=== PATIENT | female | born 1975 | race African-American/Black ===

== ENCOUNTER 2025-07-25 09:27 | Observation (INO) | payer OTHER, SELFPAY ==
[2025-07-25] VITALS (27 sets, daily range): BP systolic 106–128; BP diastolic 55–76; PULSE 97–143; RESP 13–27; TEMP 36.8–38.8; O2SAT 95–100; BMI 34.1
--- NOTE | 2025-07-25 10:24 | EKG12_ITS ---
Test Reason : TACHY Blood Pressure : */* mmHG Vent. Rate : 134 BPM Atrial Rate : 134 BPM P-R Int : 122 ms QRS Dur : 72 ms QT Int : 312 ms P-R-T Axes : 62 67 48 degrees QTcB Int : 465 ms Sinus tachycardia Low voltage QRS Borderline ECG Confirmed by ERIKA REYNA ([id number]), technical editor BENJAMIN BRENNER ([id number]) on 07/27/2025 7:09:29 AM Referred By: ROSA Confirmed By: ERIKA REYNA
[2025-07-25] MEDS: 0.9% Normal Saline (1000mL) 1,000 ML 999 ML IV (10:38)
[2025-07-25] MEDS: Ketorolac 30 MG/ML Syringe IV (10:39)
--- NOTE | 2025-07-25 10:45 | RAD_ITS ---
PROCEDURE: CHEST 1 VIEW (PORTABLE) 07/25/2025 REASON FOR EXAM: COUGH, SHORTNESS OF BREATH TECHNIQUE: Frontal view of the chest. COMPARISON: None FINDINGS: Cardiac silhouette is upper limits of normal. The lungs are clear. No pleural effusion or pneumothorax. Bones are unremarkable. RAD/Chest 1 View (Portable) IMPRESSION: No Acute Findings. Reading Location: [id number]
[2025-07-25 10:49] LABS: Hematocrit 26.0 % (37-47); Hemoglobin 7.5 g/dL (12.0-15.0); Immature Granulocytes Count 0.030 X10^3/uL (0.0-0.0); Mean Corp Hgb Conc 28.8 g/dL (32-36); Mean Corpuscular Volume 82.5 fL (81-99); Mean Platelet Vol. 11.0 fl (6.2-12.0); NRBC Flagged by Analyzer 1.3 % (0-5); POSITIVE DIFFERENTIAL YES; POSITIVE MORPHOLOGY YES; Platelet Count 110 K/mm3 (150-450); RBC Distribution Width CV 20.4 % (11.6-14.6); RBC Distribution Width SD 57.0 fl (35.1-43.9); Red Blood Count 3.15 M/mm3 (4.2-5.4); White Blood Count 6.3 K/mm3 (4.4-11.0)
--- NOTE | 2025-07-25 10:49 | EX.ED.DYSGE1 ---
HPI History of Present Illness Chief Complaint: General Illness Narrative Narrative: This is a 49-year-old female with a history of HHT syndrome who presents to the emergency department for fever and malaise. The patient states that since yesterday she began feeling unwell. She has had persistent fevers overnight. The patient states she tried taking Tylenol this morning around 930, but continues to have a fever. The patient also endorses some chills. She has had a slight nonproductive cough. She endorses right ear pain but no sore throat. No significant congestion. No chest pain but she has had some slight shortness of breath. No headache. No abdominal pain. No vomiting. No diarrhea. No urinary symptoms such as frequency, urgency or dysuria. The patient states that she did have a blood transfusion on Sunday, 3 days ago for acute on chronic anemia secondary to her HHT syndrome. She normally gets scheduled iron infusions, but her hemoglobin had dropped down to about 6.4 so she did require blood transfusion this week. She has not had any prior reactions to this. Patient is mostly concerned about her fever because she was admitted in [facility] last winter/spring. She was admitted to [facility] in November 2024 and was found to have bacteremia, E. coli, secondary to indwelling port infection. The port has since been removed. The patient states that she was so ill she ended up being transferred up to the [facility] in [place] and had a total admission for about 52 days before going to a rehab facility in December being discharged in January. The patient states she has had ongoing nausea since that discharge. She did take some Zofran this morning which calmed down the nausea. The patient is traveling from [place] visiting friends. She has had no known sick contacts. [facility] Medical History (Updated 07/25/25 @ 19:[address] Matilde Yoder MD) Iron (Fe) deficiency anemia Hypertension Port or reservoir infection Blood disorder no medical history Home Medications ?Medication ?Instructions ?Recorded ?Last Taken ?Type acetaminophen 500 mg capsule 1,000 mg PO Q6H PRN fever or pain 07/25/25 07/25/25 History fluticasone furoate 100 1 inh inhalation Q24H 07/25/25 Unknown History mcg/actuation blister powder for inhalation furosemide 20 mg tablet 40 mg PO DAILY 07/25/25 07/25/25 History ondansetron 4 mg disintegrating 4 mg PO Q8H PRN nausea and vomiting 07/25/25 07/25/25 History tablet potassium chloride 8 mEq 8 meq PO DAILY 07/25/25 07/24/25 History capsule,extended release timolol maleate 0.5 % eye drops 4 drp ophthalmic (eye) Q12H 07/25/25 07/24/25 History Allergy/AdvReac Type Severity Reaction Status Date / Time No Known Allergies Allergy Verified 07/25/25 09:28 no significant family history Surgical History (Updated 07/25/25 @ 10:24 by Kacie Aguila) History of cholecystectomy Gastric bypass status for obesity no surgical history Social History Smoking Status: Never smoker Homelessness:: Sheltered ROS ROS ED Constitutional Constitutional ED: Reports chills and fever(s) ENT ENT ED: Reports ear pain right and other; Denies rhinorrhea or sore throat Cardiovascular Cardiovascular: Denies chest pain, orthopnea or paroxysmal nocturnal dyspnea Respiratory/Chest Respiratory/Chest: Reports cough and dyspnea; Denies dyspnea on exertion, orthopnea, paroxysmal nocturnal dyspnea or sputum Gastrointestinal Gastrointestinal: Reports nausea; Denies abdominal pain, constipation, diarrhea or vomiting Genitourinary Genitourinary ED: Denies dysuria or urinary frequency Musculoskeletal Musculoskeletal: Reports myalgias; Denies arthralgias, back pain or neck pain Integumentary Denies rash Neurologic Neurologic: Denies headache(s) or weakness Psychiatric Psychiatric: Denies confusion Endocrine Endocrinology: Denies polyuria Hematologic/Lymphatic Hematologic/Lymphatic: Reports none Allergic/Immunologic Allergic/Immunologic ED: Denies urticaria EXAM Physical Exam Const Vital Signs: 07/25/25 09:29 07/25/25 09:58 07/25/25 09:58 Temperature 100.9 F H 101.0 F H Temperature Source Oral Oral Pulse Rate 143 H 125 H Respiratory Rate 18 16 Respiratory Effort Normal Blood Pressure 122/69 H 115/62 Blood Pressure Mean 86 79 Pulse Ox 95 100 Oxygen Delivery Method Room Air Room Air 07/25/25 10:13 07/25/25 10:49 07/25/25 11:00 Temperature Temperature Source Pulse Rate 123 H 116 H 110 H Respiratory Rate 14 19 H 20 H Respiratory Effort Blood Pressure 120/63 Blood Pressure Mean 82 Pulse Ox 98 96 98 Oxygen Delivery Method 07/25/25 11:01 07/25/25 11:01 07/25/25 11:15 Temperature 101.9 F H Temperature Source Oral Pulse Rate 110 H 111 H 112 H Respiratory Rate 24 H 27 H 16 Respiratory Effort Blood Pressure 119/72 119/72 117/76 Blood Pressure Mean 87 86 89 Pulse Ox 96 96 97 Oxygen Delivery Method Room Air 07/25/25 11:30 07/25/25 11:32 07/25/25 11:45 Temperature 99.8 F H Temperature Source Oral Pulse Rate 111 H 112 H Respiratory Rate 18 16 Respiratory Effort Blood Pressure 112/60 117/61 Blood Pressure Mean 75 77 Pulse Ox 97 96 Oxygen Delivery Method 07/25/25 12:00 07/25/25 12:00 07/25/25 12:15 Temperature 99.8 F H Temperature Source Oral Pulse Rate 109 H 112 H Respiratory Rate 24 H 20 H Respiratory Effort Blood Pressure 112/62 118/63 112/62 Blood Pressure Mean 78 80 77 Pulse Ox 96 97 Oxygen Delivery Method Room Air 07/25/25 12:30 07/25/25 12:45 07/25/25 13:00 Temperature Temperature Source Pulse Rate 109 H 108 H Respiratory Rate 21 H 18 Respiratory Effort Blood Pressure 123/60 H 110/55 L 111/63 Blood Pressure Mean 78 71 77 Pulse Ox 96 98 Oxygen Delivery Method 07/25/25 13:19 07/25/25 13:28 07/25/25 13:30 Temperature Temperature Source Pulse Rate 111 H 106 H Respiratory Rate 20 H 18 Respiratory Effort Blood Pressure 111/63 114/60 Blood Pressure Mean 79 75 Pulse Ox 97 96 Oxygen Delivery Method Room Air 07/25/25 13:45 07/25/25 13:59 07/25/25 14:00 Temperature 99.2 F H 99.2 F H Temperature Source Oral Oral Pulse Rate 111 H 109 H Respiratory Rate 13 21 H Respiratory Effort Blood Pressure 125/74 H 128/72 H Blood Pressure Mean 89 90 Pulse Ox 98 98 Oxygen Delivery Method Room Air 07/25/25 14:00 07/25/25 14:15 Temperature Temperature Source Pulse Rate 109 H Respiratory Rate 19 H Respiratory Effort Blood Pressure 128/72 H 122/70 H Blood Pressure Mean 88 85 Pulse Ox 99 Oxygen Delivery Method Positive well nourished, well developed, oriented x3 and healthy appearing General Appearance ED: active, cooperative and well developed Orientation / Consciousness: awake and oriented to person Exam Limitations: no limitations Nutritional Appearance: overweight HEENT Reports normocephalic, head/scalp atraumatic, TM's clear, moist mucous membranes, nasal mucous membranes and turbinates normal and oropharynx normal normocephalic, normal to inspection and atraumatic Face and Sinus: normal facial exam Nose: external nose normal and nares normal External Ear: external ears normal Tympanic Membrane ED: Yes TM's clear Mouth ED: Yes oral and palatal mucosa normal, Yes lips normal and Yes tongue normal Mouth: oral and palatal mucosa normal, lips normal and tongue normal Throat: posterior oropharynx normal Eyes PERRL, EOMs intact bilaterally and conjunctivae normal General Eye ED: Yes normal appearance of both eyes Visual Acuity: acuity normal Eyelid: eyelids normal Conjunctiva: conjunctiva normal Sclera: sclera normal Cornea: cornea normal Pupil: PERRL and accommodation reflex normal EOM: EOM abnormal Neck full ROM Lymph Lymphatic: no lymphadenopathy noted Chest Wall inspection of chest normal Chest: abnormal inspection of the chest Resp normal respiratory effort and normal air movement Effort and Inspection: able to speak in complete sentences and symmetric chest movement Auscultation: clear to auscultation bilaterally; Negative for rales, rhonchi or wheezes Cardio regular rhythm Rate: tachycardic Peripheral Pulses: pulses 2+ throughout GI normal to inspection, nondistended, normoactive bowel sounds Rectal Exam: deferred Back/Spine normal ROM and normal to inspection Cervical Spine: cervical ROM normal Extremity normal to inspection, full ROM and normal capillary refill Neuro oriented x3, CN's II-XII intact bilaterally, moves all extremities and no focal motor deficits Sensorium / Orientation: awake and alert Motor Exam: strength 5/5 throughout Psych mental status grossly normal Appearance: grossly normal and appropriate Speech: normal speech Skin no rashes or lesions noted MDM MDM MDM Narrative Medical decision making narrative: Patient presents to the emergency department for fever, malaise. She arrives tachycardic and febrile. Patient given 1 dose of Toradol in the emergency department. She was also given 1 L fluid. Initial lactic acid was elevated at 2.1, but after IV fluids normalized. Will the patient is febrile, I do not feel she is septic. She does not have a white count and no endorgan damage. There is no evidence of any pneumonia or urinary tract infection. Blood cultures are pending. COVID, flu and RSV testing was all negative. However, given the patient's E. coli bacteremia and sepsis requiring prolonged admission earlier this year, I do feel it is reasonable to admit the patient on observation for continued monitoring for possible development of sepsis and bacteremia given her significant history. Patient is comfortable with this plan. I spoke with hospitalist Dr. Mcbride for admission. We will hold off on antibiotics at this time as most likely this is a viral febrile illness of unclear etiology at this point. Patient agreeable with observation admission plan. History & Record Review Discussion w/independent historian: Patient Lab Data Attestation: I reviewed the patient's lab results. Lab results narrative: Lab work reviewed. Will the patient has no leukocytosis she does have a neutrophil shift 88%. And she has normal electrolytes and normal renal function. The patient does have an elevated total bilirubin level 1.58 and elevated AST of 64. Patient also has an elevated alkaline phosphatase level of 127. Unsure review, the patient does have known pancreatic mass likely contributing to these numbers. She does not have any abdominal pain or tenderness today. Otherwise urinalysis does not show any signs of infection or dehydration. Labs: Laboratory Results - last 24 hr 07/25/25 07/25/25 10:40 10:48 WBC 6.3 RBC 3.15 L Hgb 7.5 L Hct 26.0 L MCV 82.5 MCH 23.8 L MCHC 28.8 L RDW Std Deviation 57.0 H RDW Coeff of Mane 20.4 H Plt Count 110 L MPV 11.0 Immature Gran % (Auto) 0.500 Neut % (Auto) 88.2 H Lymph % (Auto) 5.1 L [place] % (Auto) 3.0 Eos % (Auto) 2.7 Baso % (Auto) 0.5 Absolute Neuts (auto) 5.6 Absolute Lymphs (auto) 0.32 L Nucleated RBC % 1.3 Polychromasia RARE Anisocytosis 1+ PT 17.2 H INR 1.4 APTT 32.1 Sodium 137 Potassium 4.0 Chloride 107 Carbon Dioxide 19.3 L Anion Gap 11 BUN 7 Creatinine 0.63 L Estim Creat Clear Calc 123.08 Est GFR (MDRD) Non-Af 109 BUN/Creatinine Ratio 10.3 Glucose 137 H Lactic Acid 2.1 H* Calcium 9.1 Total Bilirubin 1.58 H AST 64 H ALT 28 Alkaline Phosphatase 127 H Total Protein 6.8 Albumin 2.9 L Globulin 3.9 Albumin/Globulin Ratio 0.7 L Urine Color Yellow Urine Clarity Clear Urine pH 6.0 Ur Specific [place] 1.010 Urine Protein 15 H Urine Glucose (UA) Normal Urine Ketones Negative Urine Occult Blood Negative Urine Nitrite Negative Urine Bilirubin Negative Urine Urobilinogen Normal Ur Leukocyte Esterase Negative Urine RBC 0 SEEN Urine WBC 0 SEEN Ur Squamous Epith Cells 0 SEEN Urine Bacteria 0 SEEN Urine Mucus 0 SEEN Radiography Chest X-Ray - ED: 1 View, Read by ED Physician, Read by Radiologist and - (I personally reviewed the patient's chest x-ray which shows no evidence of consolidation or pneumonia.) Diagnostic Testing: Clinical Impression(s) from Imaging Studies Chest X-Ray 07/25/25 10:45 IMPRESSION: No Acute Findings. Reading Location: [id number] Management Discussion w/another healthcare provider: Hospitalist (I spoke with Dr. Mcbride) Discharge Plan Dx/Rx/DC Orders Clinical Impression: Fever of unknown origin Disposition Disposition: Acute Care Hospital [facility] Discharge Date/Time: 07/25/25 14:49
[2025-07-25 10:50] LABS: Differential Indicated SCAN CRITERIA MET
[2025-07-25 10:51] LABS: Mucous, Urine 0 SEEN /hpf (<or=2+); Red Blood Cells-Urine 0 SEEN /hpf (0-5); Squamous Epithelial Cells - UA 0 SEEN /hpf (5-10)
[2025-07-25 10:55] LABS: Color, Urine Yellow (Yellow); Glucose, Dipstick Normal (Normal); Ketone-Dipstick Negative (Negative); Leukocyte Esterase-Dipstick Negative /ul (Negative); Nitrite-Dipstick Negative (Negative); Occult Blood-Urine Negative /ul (Negative); Protein-Dipstick 15 mg/dl (Negative); Specific Gravity, Urine 1.010 (1.002-1.030); Urine Bilirubin Dipstick Negative (Negative)
[2025-07-25 11:04] LABS: Partial Thromboplast Time 32.1 Seconds (24.1-36.2)
[2025-07-25 11:13] LABS: Anisocytosis 1+; Polychromasia RARE
[2025-07-25 11:14] LABS: Prothrombin Time (Protime)PT. 17.2 SECONDS (11.7-14.9)
[2025-07-25 11:58] LABS: AST(SGOT) 64 U/L (<=31); Alanine Aminotransfer ALT/SGPT 28 U/L (<=34); Albumin, Serum 2.9 g/dL (3.5-5.0); Alkaline Phosphatase 127 U/L (35-104); Anion Gap 11 (5-15); BUN 7 mg/dL (4-19); BUN/Creat Ratio 10.3 RATIO (10-20); Calcium,Total 9.1 mg/dL (7.6-11.0); Carbon Dioxide 19.3 mmol/L (21.0-32.0); Chloride 107 mmol/L (98-108); Estimated Creatinine Clearance 123.08 ml/min (50-250); Globulin 3.9 g/dL (2.2-4.2); Glucose 137 mg/dL (70-99); Potassium 4.0 mmol/L (3.3-5.1)
[2025-07-25 14:42] LABS: Reflex Lactate? Y
[2025-07-25] MEDS: 0.9% Normal Saline (1000mL) 1,000 ML 100 ML IV ×2 (15:13→23:48)
[2025-07-25] MEDS: 0.9% Saline Lock 10 ML Syringe IV (15:13)
--- NOTE | 2025-07-25 16:52 | HP.PCM.HOS_ITS ---
HPI - General General Date of Admission: 07/25/25 Date of Service: 07/25/25 Chief Complaint: Fever and chills today HPI Narrative DEANN BANG, is a 49 F who presents to the emergency room at [facility] with chief complaint of fevers chills which started today. Patient has a past history of sepsis in November 2024 with E. coli and was hospitalized in [place] and then transferred to [facility] due to concerns of a pancreatic mass which was ruled out. The etiology of the E. coli septicemia was never explained, patient did have a permanent Mediport in for blood transfusion since she has a history of hereditary hemorrhagic telangiectasia with anemia. Patient gets blood transfusions from time to time, she had blood transfusion on Sunday but denied any fever or chills after the blood transfusion. Patient has no complaints of any cough, abdominal pain, diarrhea, or nausea and vomiting. Workup in the emergency room included labs which showed normal white blood cell count, hemoglobin was 7.5, patient's lactic acid was elevated at 2.1, AST was elevated at 64, bilirubin was 1.58 and alkaline phosphatase was 127. Patient's chest x-ray was unremarkable, urinalysis was unremarkable. Patient had a PCR for COVID, RSV, and flu-this test was negative. Patient will be placed in observation status for fever of unknown origin, labs will be monitored and blood cultures were obtained in the emergency room. I have elected not to place the patient on any IV antibiotics at this time due to the fact we do not have a source to explain her fever. [facility] Medical History (Updated 07/25/25 @ 16:[address] Mo Mcbride, DO) Iron (Fe) deficiency anemia Hypertension Port or reservoir infection Blood disorder Home Medications ?Medication ?Instructions ?Recorded ?Last Taken ?Type acetaminophen 500 mg capsule 1,000 mg PO Q6H PRN fever or pain 07/25/25 07/25/25 History fluticasone furoate 100 1 inh inhalation Q24H Unknown History mcg/actuation blister powder for inhalation furosemide 20 mg tablet 40 mg PO DAILY 07/25/2507/02 History ondansetron 4 mg disintegrating 4 mg PO Q8H PRN nausea and vomiting 07/25/25 07/25/25 History tablet potassium chloride 8 mEq 8 meq PO DAILY 07/25/2507/02 History capsule,extended release timolol maleate 0.5 % eye drops 4 drp ophthalmic (eye) Q12H 07/25/25 07/24/25 History Allergy/AdvReac Type Severity Reaction Status Date / Time No Known Allergies Allergy Verified 07/25/25 09:28 Surgical History (Updated 07/25/25 @ 10:24 by Kacie Aguila) History of cholecystectomy Gastric bypass status for obesity Social History Smoking Status: Never smoker ROS Constitutional Constitutional: Reports chills and fever(s); Denies anorexia, change in weight, night sweats or weakness Eyes Eyes: Denies blurry vision, change in eye color, change in vision, discharge from eye(s) or eye pain Cardiovascular Cardiovascular: Denies chest pain, claudication, dyspnea on exertion, edema or palpitations Respiratory/Chest Respiratory/Chest: Denies cough, dyspnea, hemoptysis, productive cough, shortness of breath at rest or shortness of breath with exertion Gastrointestinal Gastrointestinal: Denies abdominal pain, constipation, diarrhea, dyspepsia, hematemesis, hematochezia, melena, nausea or vomiting Genitourinary Genitourinary: Denies dysuria, hematuria, urinary frequency, urinary hesitancy, urinary incontinence or urinary urgency Musculoskeletal Musculoskeletal: Denies back pain, joint pain, joint stiffness, joint swelling, myalgias or neck pain Neurologic Neurologic: Denies abnormal gait, abnormal speech, dizziness, focal weakness, headache(s), loss of vision, numbness, other visual disturbances, paresthesias, syncope or tingling Psychiatric Psychiatric: Denies anxiety, cognitive impairment, depression, irritability, mood swings or suicidal ideation Endocrine Endocrinology: Denies change in body appearance, cold intolerance, excessive sweating, heat intolerance, polydipsia or polyuria Hematologic/Lymphatic Hematologic/Lymphatic: Denies none, anemia, easy bleeding, easy bruising or lymphadenopathy Allergic/Immunologic Allergic/Immunologic: Denies rhinitis, urticaria, eczemia or asthma Vital Signs Vital Signs Vital Signs: 07/25/25 09:29 07/25/25 09:58 07/25/25 09:58 Temperature 100.9 F H 101.0 F H Temperature Source Oral Oral Pulse Rate 143 H 125 H Respiratory Rate 18 16 Respiratory Effort Normal Blood Pressure 122/69 H 115/62 Blood Pressure Mean 86 79 Blood Pressure Source Blood Pressure Position Blood Pressure Location Pulse Ox 95 100 Oxygen Delivery Method Room Air Room Air 07/25/25 10:13 07/25/25 10:49 07/25/25 11:00 Temperature Temperature Source Pulse Rate 123 H 116 H 110 H Respiratory Rate 14 19 H 20 H Respiratory Effort Blood Pressure 120/63 Blood Pressure Mean 82 Blood Pressure Source Blood Pressure Position Blood Pressure Location Pulse Ox 98 96 98 Oxygen Delivery Method 07/25/25 11:01 07/25/25 11:01 07/25/25 11:15 Temperature 101.9 F H Temperature Source Oral Pulse Rate 110 H 111 H 112 H Respiratory Rate 24 H 27 H 16 Respiratory Effort Blood Pressure 119/72 119/72 117/76 Blood Pressure Mean 87 86 89 Blood Pressure Source Blood Pressure Position Blood Pressure Location Pulse Ox 96 96 97 Oxygen Delivery Method Room Air 07/25/25 11:30 07/25/25 11:32 07/25/25 11:45 Temperature 99.8 F H Temperature Source Oral Pulse Rate 111 H 112 H Respiratory Rate 18 16 Respiratory Effort Blood Pressure 112/60 117/61 Blood Pressure Mean 75 77 Blood Pressure Source Blood Pressure Position Blood Pressure Location Pulse Ox 97 96 Oxygen Delivery Method 07/25/25 12:00 07/25/25 12:00 07/25/25 12:15 Temperature 99.8 F H Temperature Source Oral Pulse Rate 109 H 112 H Respiratory Rate 24 H 20 H Respiratory Effort Blood Pressure 112/62 118/63 112/62 Blood Pressure Mean 78 80 77 Blood Pressure Source Blood Pressure Position Blood Pressure Location Pulse Ox 96 97 Oxygen Delivery Method Room Air 07/25/25 12:30 07/25/25 12:45 07/25/25 13:00 Temperature Temperature Source Pulse Rate 109 H 108 H Respiratory Rate 21 H 18 Respiratory Effort Blood Pressure 123/60 H 110/55 L 111/63 Blood Pressure Mean 78 71 77 Blood Pressure Source Blood Pressure Position Blood Pressure Location Pulse Ox 96 98 Oxygen Delivery Method 07/25/25 13:19 07/25/25 13:28 07/25/25 13:30 Temperature Temperature Source Pulse Rate 111 H 106 H Respiratory Rate 20 H 18 Respiratory Effort Blood Pressure 111/63 114/60 Blood Pressure Mean 79 75 Blood Pressure Source Blood Pressure Position Blood Pressure Location Pulse Ox 97 96 Oxygen Delivery Method Room Air 07/25/25 13:45 07/25/25 13:59 07/25/25 14:00 Temperature 99.2 F H 99.2 F H Temperature Source Oral Oral Pulse Rate 111 H 109 H Respiratory Rate 13 21 H Respiratory Effort Blood Pressure 125/74 H 128/72 H Blood Pressure Mean 89 90 Blood Pressure Source Blood Pressure Position Blood Pressure Location Pulse Ox 98 98 Oxygen Delivery Method Room Air 07/25/25 14:00 07/25/25 14:15 07/25/25 14:29 Temperature 99.2 F H Temperature Source Pulse Rate 109 H 109 H Respiratory Rate 19 H 21 H Respiratory Effort Blood Pressure 128/72 H 122/70 H 122/70 H Blood Pressure Mean 88 85 87 Blood Pressure Source Blood Pressure Position Blood Pressure Location Pulse Ox 99 98 Oxygen Delivery Method 07/25/25 14:30 07/25/25 15:05 Temperature 99.1 F Temperature Source Oral Pulse Rate 107 H 97 Respiratory Rate 17 16 Respiratory Effort Blood Pressure 106/73 Blood Pressure Mean 84 Blood Pressure Source Monitor Blood Pressure Position Semi-Fowlers Blood Pressure Location Right Arm Pulse Ox 97 96 Oxygen Delivery Method Room Air Weight Weight: 92.986 kg Body Mass Index (BMI) 34.1 Physical Exam Const alert, oriented x3, no apparent distress and healthy appearing General Appearance: cooperative, well kempt and well developed Orientation / Consciousness: awake, oriented to person, oriented to place and oriented to time HEENT normocephalic, head/scalp atraumatic, hearing grossly normal bilaterally and moist oral mucous membranes Eyes PERRL, EOMs intact bilaterally and conjunctivae normal Neck supple, no JVD, thyroid normal and no carotid bruits General: trachea midline Resp normal respiratory effort, no retractions, no use of accessory muscles and clear to auscultation bilaterally Auscultation: Negative for rales, rhonchi or wheezes Cardio regular rate, regular rhythm, S1 normal heart sound, S2 normal heart sound, no murmurs, no rub and no gallops GI normal to inspection, nondistended, normoactive bowel sounds, soft to palpation, non-tender and non-distended Extremity no clubbing, cyanosis or edema Skin no rashes or lesions noted General Skin Exam: no breakdown Neuro oriented x3, CN's II-XII intact bilaterally, moves all extremities, no focal motor deficits and no sensory deficits noted Sensorium / Orientation: awake and alert Speech: speech normal Psych affect normal Results Lab / Micro Data 07/25/25 10:40 07/25/25 10:40 Labs: Laboratory Results - last 24 hr 07/25/25 10:40: WBC 6.3, RBC 3.15 L, Hgb 7.5 L, Hct 26.0 L, MCV 82.5, MCH 23.8 L , MCHC 28.8 L, RDW Std Deviation 57.0 H, RDW Coeff of Mane 20.4 H, Plt Count 110 L, MPV 11.0, Immature Gran % (Auto) 0.500, Neut % (Auto) 88.2 H, Lymph % (Auto) 5.1 L, [place] % (Auto) 3.0, Eos % (Auto) 2.7, Baso % (Auto) 0.5, Absolute Neuts (auto) 5.6, Absolute Lymphs (auto) 0.32 L, Nucleated RBC % 1.3, Polychromasia RARE, Anisocytosis 1+, PT 17.2 H, INR 1.4, APTT 32.1, Sodium 137, Potassium 4.0, Chloride 107, Carbon Dioxide 19.3 L, Anion Gap 11, BUN 7, Creatinine 0.63 L, Estim Creat Clear Calc 123.08, Est GFR (MDRD) Non-Af 109, BUN/Creatinine Ratio 10.3, Glucose 137 H, Lactic Acid 2.1 H*, Calcium 9.1, Total Bilirubin 1.58 H, A ST 64 H, ALT 28, Alkaline Phosphatase 127 H, Total Protein 6.8, Albumin 2.9 L, Globulin 3.9, Albumin/Globulin Ratio 0.7 L 07/25/25 10:48: Urine Color Yellow, Urine Clarity Clear, Urine pH 6.0, Ur Specific [place] 1.010, Urine Protein 15 H, Urine Glucose (UA) Normal, Urine Ketones Negative, Urine Occult Blood Negative, Urine Nitrite Negative, Urine Bilirubin Negative, Urine Urobilinogen Normal, Ur Leukocyte Esterase Negative, Urine RBC 0 SEEN, Urine WBC 0 SEEN, Ur Squamous Epith Cells 0 SEEN, Urine Bacteria 0 SEEN, Urine Mucus 0 SEEN 07/25/25 14:57: Lactic Acid < 1.0 Micro: Microbiology 07/25/25 10:35 Mucosa - Nose SARS-CoV-2, Influenza & RSV (PCR) - Final Imaging Radiology Impression Chest X-Ray 07/25/25 10:45 IMPRESSION: No Acute Findings. Reading Location: [id number] Assessment & Plan Assessment/Plan (1) Fever of unknown origin: PLAN: Plan 1. Fever of unknown origin-etiology unclear, again patient had blood cultures obtained in the emergency room, there is no site of infection that can be identified at this time, again I have elected not to start her on antibiotics at this time. Patient will be given IV fluids and repeat labs will be obtained tomorrow morning. #2 hereditary hemorrhagic telangiectasia-complicates care, management, recovery, and prognosis, CBC will be repeated tomorrow #3 elevated liver enzymes-etiology unclear, liver profile will be repeated tomorrow #4 chronic anemia secondary to #2-CBC will be repeated tomorrow Total clinical time spent by myself addressing the patient's medical issues, reviewing all of her data, and collaborating with patient's care team: 55 minutes Charges/Coding Visit Charges Inpatient E&M: 44195 Init Hosp L2
[2025-07-26 05:44] LABS: Hematocrit 25.2 % (37-47); Hemoglobin 7.1 g/dL (12.0-15.0); Immature Granulocytes Count 0.020 X10^3/uL (0.0-0.0); Mean Corp Hgb Conc 28.2 g/dL (32-36); Mean Corpuscular Volume 84.3 fL (81-99); Mean Platelet Vol. 11.4 fl (6.2-12.0); NRBC Flagged by Analyzer 0.5 % (0-5); POSITIVE MORPHOLOGY YES; Platelet Count 113 K/mm3 (150-450); RBC Distribution Width CV 21.3 % (11.6-14.6); RBC Distribution Width SD 58.1 fl (35.1-43.9); Red Blood Count 2.99 M/mm3 (4.2-5.4); White Blood Count 5.9 K/mm3 (4.4-11.0)
[2025-07-26 05:45] LABS: Differential Indicated SCAN CRITERIA MET
[2025-07-26 05:59] LABS: AST(SGOT) 39 U/L (<=31); Alanine Aminotransfer ALT/SGPT 21 U/L (<=34); Albumin, Serum 2.6 g/dL (3.5-5.0); Alkaline Phosphatase 108 U/L (35-104); Bilirubin, Direct 0.72 mg/dL (0.00-0.30); Globulin 3.5 g/dL (2.2-4.2)
[2025-07-26 06:23] LABS: Differential Comment SCANNED
[2025-07-26 06:24] LABS: Anisocytosis 2+; Microcytosis 1+; Polychromasia 1+; Target Cells RARE
[2025-07-26 06:37] VITALS: BP 112/70; PULSE 93; RESP 18; TEMP 36.8; O2SAT 99
[2025-07-26 08:18] VITALS: BP 118/76; PULSE 90; RESP 16; TEMP 36.7; O2SAT 98
[2025-07-26] MEDS: 0.9% Normal Saline (1000mL) 1,000 ML 100 ML IV (09:37)
--- NOTE | 2025-07-26 11:53 | DCINST_ITS ---
Discharge Instructions DC O2, CPAP, BIPAP needs Home O2 Discharge instructions: No Dressing / Incision Discharge Activity: Return to Normal Activity Weight Bearing Status: Full weight bearing Follow Up Care Test Results: Test results from this visit will be discussed in further detail at your follow- up appointment, if applicable. Discharge Plan Admission Admit Date/Time: 07/25/25 14:16 Primary Reason for Your Visit: Fever unknown origin Attending Provider: Mo Mcbride Primary Care Provider: CHRISTY CORONADO Discharge Orders/Prescriptions Prescriptions: Continued timolol maleate 0.5 % drops 4 drp ophthalmic (eye) Q12H Patient Comments: USE 4 DROPS IN BOTH EYES TWO TIMES A DAY. PLEASE DISPENSE 30 ML WITH EACH REFILL ondansetron 4 mg tablet,disintegrating 4 mg PO Q8H PRN (Reason: nausea and vomiting) fluticasone furoate 100 mcg/actuation blister with device 1 inh inhalation Q24H Patient Comments: HAS NOT STARTED YET acetaminophen 500 mg capsule 1,000 mg PO Q6H PRN (Reason: fever or pain) Discontinued potassium chloride 8 mEq capsule, extended release 8 meq PO DAILY furosemide 20 mg tablet 40 mg PO DAILY Referrals / Follow Up: CHRISTY CORONADO [Other] - Within 2 Weeks Obed Joshua PA [[facility], Urology] Disposition Disposition (needs filled in before D/C Order can be placed): Home, Self Care
--- NOTE | 2025-07-26 11:58 | DS.PCM_ITS ---
Providers Date of Admission: 07/25/25 Date of Discharge: 07/26/25 Primary Care Physician: CHRISTY CORONADO Reason For Visit: FEVER OF UNKNOWN ORIGIN Diagnosis Discharge Diagnosis (1) Fever of unknown origin: Status: Acute Code(s): R50.9 - Fever, unspecified Plan 1. Fever of unknown origin-etiology unclear, again patient had blood cultures obtained in the emergency room, there is no site of infection that can be identified at this time, again I have elected not to start her on antibiotics at this time. Patient will be given IV fluids and repeat labs will be obtained tomorrow morning. #2 hereditary hemorrhagic telangiectasia-complicates care, management, recovery, and prognosis, CBC will be repeated tomorrow #3 elevated liver enzymes-etiology unclear, liver profile will be repeated tomorrow #4 chronic anemia secondary to #2-CBC will be repeated tomorrow Total clinical time spent by myself addressing the patient's medical issues, reviewing all of her data, and collaborating with patient's care team: 55 minutes Medications at Discharge Home Medications acetaminophen 500 mg capsule 1,000 mg PO Q6H PRN fever or pain 07/25/25 fluticasone furoate 100 mcg/actuation blister powder for inhalation 1 inh inhalation Q24H 07/25/25 ondansetron 4 mg disintegrating tablet 4 mg PO Q8H PRN nausea and vomiting 07/25/25 timolol maleate 0.5 % eye drops 4 drp ophthalmic (eye) Q12H 07/25/25 Hospital Course Operations None Procedures None Summary of Care Provided Minutes Spent on Discharge: 31 Hospital Course: This 49-year-old black female was seen in the emergency room at [facility] with complaints of fever with chills, she had been hospitalized earlier this year for sepsis, it appears she had E. coli positive blood cultures (not ESBL) and there was a question about a pancreatic mass since she was transferred from [facility] in [place] to [facility] but no pancreatic mass was discovered on further investigation. Patient also was hospitalized briefly and November of this year and had several blood cultures obtained which were all negative. Her original hospitalization was the first part of November of this year. Patient also has hereditary hemorrhagic telangiectasia and gets blood transfusions, her last transfusion was earlier this week and she was worried that she had a blood infection from her blood transfusion. Workup in the emergency room included a normal white blood cell count, hemoglobin was 7.5,, chemistry profile was unremarkable, patient's lactic acid was elevated at 2.1. Patient's urinalysis was unremarkable. Patient was placed in observation status for fever of unknown origin, after her admission she did not develop a fever and throughout her hospitalization she exhibited no chills. On 07/26/2025, patient was seen and examined: On examination she appeared in good health and spirits, she does not appear to be in any distress. Vital signs as documented. Skin warm and dry and without overt rashes. Neck without JVD, thyroid appears normal, trachea is midline, neck is supple. Lungs clear, normal air movement was noted. Heart exam notable for regular rhythm, normal sounds and absence of murmurs, rubs or gallops. Abdomen unremarkable and without evidence of organomegaly, masses, or abdominal aortic enlargement, bowel sounds are present in all 4 quadrants, no abdominal tenderness was noted. Extremities nonedematous, no cyanosis was noted, no clubbing was noted. Neuro: Cranial nerves II through XII are grossly intact, no focal motor deficits were noted, sensation to light touch and pinprick is intact, motor exam 5/5 throughout. Psych: Patient is alert and oriented x3, she does not appear anxious or depressed, she does not appear agitated. Patient's repeat CBC on 07/26/2025 showed a normal white blood cell count, hemoglobin was 7.1, I discussed this with the patient but she did not want to be transfused again and preferred to follow-up with her veterinary technologist. On 07/26/2025, patient was seen and examined and felt to be stable for discharge home. Medical Records Data Homelessness:: Sheltered Weight / BMI Weight Weight: 92.986 kg Body Mass Index (BMI) 34.1 ABG / Lab / Microbiology Data 07/26/25 05:05 07/25/25 10:40 Laboratory: Laboratory Results - last 24 hr 07/26/25 05:05: WBC 5.9, RBC 2.99 L, Hgb 7.1 L, Hct 25.2 L, MCV 84.3, MCH 23.7 L , MCHC 28.2 L, RDW Std Deviation 58.1 H, RDW Coeff of Mane 21.3 H, Plt Count 113 L, MPV 11.4, Immature Gran % (Auto) 0.300, Neut % (Auto) 60.0, Lymph % (Auto) 17.0 L, [place] % (Auto) 13.6 H, Eos % (Auto) 8.4 H, Baso % (Auto) 0.7, Absolute Neuts (auto) 3.6, Absolute Lymphs (auto) 1.01, Nucleated RBC % 0.5, Differential Comment SCANNED, Platelet Estimate SLT DEC, Polychromasia 1+, Anisocytosis 2+, Microcytosis 1+, Target Cells RARE, Total Bilirubin 1.26, Direct Bilirubin 0.72 H, AST 39 H, ALT 21, Alkaline Phosphatase 108 H, Total Protein 6.1, Albumin 2.6 L, Globulin 3.5 Microbiology: Microbiology 07/25/25 10:35 Mucosa - Nose SARS-CoV-2, Influenza & RSV (PCR) - Final D/C Instructions Weight Bearing Status: Full weight bearing DC O2, CPAP, BIPAP Needs Home O2 Discharge instructions: No Meaningful Use Info Meaningful Use Meaningful Use Diagnoses (Choose all that apply): None applicable Discharge Plan Admission Admit Date/Time: 07/25/25 14:16 Primary Reason for Your Visit: Fever unknown origin Attending Provider: Mo Mcbride Primary Care Provider: CHRISTY CORONADO Discharge Orders/Prescriptions Prescriptions: Continued timolol maleate 0.5 % drops 4 drp ophthalmic (eye) Q12H Patient Comments: USE 4 DROPS IN BOTH EYES TWO TIMES A DAY. PLEASE DISPENSE 30 ML WITH EACH REFILL ondansetron 4 mg tablet,disintegrating 4 mg PO Q8H PRN (Reason: nausea and vomiting) fluticasone furoate 100 mcg/actuation blister with device 1 inh inhalation Q24H Patient Comments: HAS NOT STARTED YET acetaminophen 500 mg capsule 1,000 mg PO Q6H PRN (Reason: fever or pain) Discontinued potassium chloride 8 mEq capsule, extended release 8 meq PO DAILY furosemide 20 mg tablet 40 mg PO DAILY Referrals / Follow Up: CHRISTY CORONADO [Other] - Within 2 Weeks Obed Joshua PA [[facility], Urology] Disposition Disposition (needs filled in before D/C Order can be placed): Home, Self Care Charges/Coding Visit Charges Inpatient E&M: 98965 Disch Hosp >30min
[2025-07-26 13:28] VITALS: BP 123/72; PULSE 94; RESP 16; TEMP 37.1; O2SAT 97
== END 2025-07-26 14:30 | disposition home or self-care (01) ==
LOC: ED 11:10 → MS3 14:45
PROVIDERS: Admitting Provider Internal Medicine; Emergency Provider Emergency Medicine; Visit Provider Internal Medicine
DX: R50.9 Fever, unspecified (principal); Z59.00 Homelessness unspecified; I78.0 Hereditary hemorrhagic telangiectasia; Z11.52 Encounter for screening for COVID-19; I10 Essential (primary) hypertension; Z79.899 Other long term (current) drug therapy; Z98.84 Bariatric surgery status; D64.9 Anemia, unspecified; R74.8 Abnormal levels of other serum enzymes
CPT/HCPCS: 36415; 71045; 80053; 80076; 81001; 83605; 85025; 85610; 85730; 87040; 87086; 87088; 87186; 87631; 93005; 96361; 96374; 99221; 99285; A4216; G0378